=== PATIENT | female | born 1980 | race Caucasian/White ===

== ENCOUNTER 2021-12-17 21:10 | Inpatient (IN) | payer SELFPAY ==
[2021-12-17 22:09] LABS: #Basophils 0.1 thou/uL (0.0-0.2); #Eosinphils 0.4 thou/uL (0.0-0.7); #Lymphocytes 2.9 thou/uL (1.20-3.40); #Monocytes 0.6 thou/uL (0.11-0.59); #Neutrophils 3.4 thou/uL (1.40-6.50); %Basophils 1.6 % (0.0-1.0); %Eosinophils 5.4 % (0.0-10.0); %Lymphocytes 38.9 % (21.0-51.0); %Monocytes 7.4 % (0.0-10.0); %Neutrophils 46.7 % (42.0-75.0); Hemoglobin 14.2 g/dL (12.0-16.0); Mean Corpuscular HGB CONC 32.5 g/dL (32.0-36.0); Mean Corpuscular Hemoglobin 31.8 pg (27.0-31.0); Mean Corpuscular Volume 97.7 fL (78.0-98.0); Mean Platelet Volume 9.2 fL (7.4-10.4); Platelet Count 188 thou/uL (130-400); RBC Distribution Width 12.1 % (11.5-14.5); Red Blood Cell (RBC) Count 4.48 mill/uL (4.20-5.40); White Blood Cell (WBC) Count 7.3 thou/uL (4.8-10.8)
[2021-12-17 22:30] LABS: Phosphorus 3.3 mg/dL (2.3-4.7)
[2021-12-17 22:32] LABS: ALT (SGPT) 90 U/L (8-55); AST (SGOT) 109 U/L (5-34); Albumin 3.1 g/dL (3.5-5.0); Alkaline Phosphatase 193 U/L (40-110); Anion Gap 16 mmol/L (10-20); BUN (Urea Nitrogen) 9 mg/dL (7.0-18.7); Bilirubin, Total 0.7 mg/dL (0.2-1.2); Calc. Creatinine Clearance 0 mL/min (70-130); Calcium 9.2 mg/dL (7.8-10.44); Carbon Dioxide 28 mmol/L (22-29); Chloride 92 mmol/L (98-107); Estimated GFR 25; Globulin 3.5 g/dL (2.4-3.5); Magnesium 1.8 mg/dL (1.6-2.6); Protein, Total 6.6 g/dL (6.0-8.3); Sodium 133 mmol/L (136-145)
[2021-12-17 22:35] LABS: Glucose 590 mg/dL (70-105); Potassium 2.9 mmol/L (3.5-5.1)
[2021-12-17] MEDS ORDERED: Aspirin Chewable 81 MG TAB ONE (22:42)
[2021-12-17] MEDS ORDERED: Potassium Chloride 20 MEQ/100 ML PREMIX BAG ONE (22:42)
[2021-12-17] MEDS ORDERED: Potassium Chloride 20 MEQ TAB ONE (22:42)
[2021-12-17 23:00] LABS: Actual Bicarbonate (HCO3v) 30 mEq/L (22-28); Analyzer IN Cardio ER; Base Excess 5.2 mEq/L (-2.0 to +3.0); Calcium, Ionized (venous) 1.03 mmol/L (1.16-1.32); Chloride (VBG) 95 mmol/L (98-106); Hemoglobin (Hb) 15.2 g/dL (11.7-15.5); Potassium (VBG) 2.81 mmol/L (3.70-5.30); Sodium 130.1 mmol/L (133-146); pH (venous) 7.45 (7.32-7.43)
[2021-12-17 23:34] LABS: SARS-CoV-2 NAA Rapid Test Not Detected (NotDetected)
[2021-12-17 23:36] LABS: CKMB 12.3 ng/mL (0-6.6)
[2021-12-18] MEDS ORDERED: Electrolyte Replacement Protocol 1 EACH FS SCH (00:15)
[2021-12-18] MEDS ORDERED: Zolpidem Tartrate 5 MG TAB PO PRN (00:16)
[2021-12-18] MEDS ORDERED: Acetaminophen 325 MG TAB PO PRN (00:16)
[2021-12-18] MEDS ORDERED: Ondansetron PF 4 MG/2 ML Vial IVP PRN (00:16)
[2021-12-18] MEDS ORDERED: HYDROcodone/Acetaminophen 5/325 mg Tablet PO PRN (00:16)
[2021-12-18] MEDS ORDERED: Nitroglycerin 0.4 MG TAB (25 Tab Bottle) SL PRN (00:16)
[2021-12-18] MEDS ORDERED: Dextrose 50% Abboject 50 ML SYRINGE SLOW IVP PRN (00:16)
[2021-12-18] MEDS ORDERED: Dextrose 5% in Water 1,000 ML IV PRN (00:16)
[2021-12-18] MEDS ORDERED: Guaifenesin DM 100-10/5 ML UDCUP PO PRN (00:16)
[2021-12-18] MEDS ORDERED: Bisacodyl 5 MG TAB PO PRN (00:16)
[2021-12-18] MEDS ORDERED: HumaLOG 300 UNITS/3 ML VIAL SC PRN (00:16)
[2021-12-18] MEDS ORDERED: NS 0.9% w/ 20 MEQ KCL 1,000 ML/1,000 ML BAG IV SCH (00:30)
[2021-12-18] MEDS ORDERED: Aspirin 325 MG TAB PO SCH (00:30)
[2021-12-18] MEDS ORDERED: Labetalol HCl 100 MG/20 ML VIAL SLOW IVP PRN (00:31)
[2021-12-18 00:33] LABS: Bacteria/HPF 4+ HPF (None Seen); Bilirubin Negative (Negative); Blood, Urine 1+ (Negative); Clarity Turbid (Clear); Glucose, Urine (Dipstick) Greater than 1000 mg/dL (Negative); Ketone, Urine Negative (Negative); Leukocyte 500 Leu/uL (Negative); Nitrite Negative (Negative); Protein, Urine (Dipstick) 70 mg/dL (Neg-Trace); Specific Gravity, Urine 1.023 (1.002-1.036); Urobilinogen Normal mg/dL (Less than 2); WBC/HPF Greater than 50 HPF (0-3)
[2021-12-18 00:34] LABS: Pregnancy Test - Urine (BHCG) Negative (Negative); Pregu Control Background? CLEAR/WHITE (CLR/WHITE); Pregu Control Bar Appear? YES (CONTROL BAR); Specific Gravity 1.023 (1.002-1.036)
[2021-12-18] MEDS ORDERED: Insulin Regular 300 UNITS/3 ML VIAL ONE (00:58)
[2021-12-18] MEDS ORDERED: cefTRIAXone\\ROCEPHIN 1 GM VIAL ONE (01:11)
[2021-12-18 01:36] LABS: Magnesium 1.7 mg/dL (1.6-2.6)
[2021-12-18 01:42] LABS: Troponin I 0.049 ng/mL (< 0.028)
[2021-12-18] MEDS ORDERED: Potassium Chloride 20 MEQ TAB PO SCH (02:00)
[2021-12-18 02:37] VITALS: BMI 26.0
[2021-12-18] MEDS: Nicotine 21 MG PATCH TD SCH ×2 (02:37→23:57)
[2021-12-18] MEDS: 1/2 NS w/KCL 20 mEq 1,000 ML IV SCH ×2 (02:45→14:57)
[2021-12-18 02:58] LABS: Creatinine, Urine Less than 20.00 mg/dL (47-110); Sodium, Urine 96 mmol/L (Not Available)
[2021-12-18] MEDS ORDERED: Enoxaparin Sodium 80 MG/0.8 ML SYRINGE SC SCH (03:00)
[2021-12-18] MEDS ORDERED: HumaLOG 300 UNITS/3 ML VIAL SC SCH (03:00)
[2021-12-18 04:33] LABS: ALT (SGPT) 77 U/L (8-55); AST (SGOT) 98 U/L (5-34); Albumin 2.6 g/dL (3.5-5.0); Alkaline Phosphatase 167 U/L (40-110); Anion Gap 15 mmol/L (10-20); BUN (Urea Nitrogen) 8 mg/dL (7.0-18.7); Bilirubin, Total 0.5 mg/dL (0.2-1.2); Calc. Creatinine Clearance 47 mL/min (70-130); Calcium 8.5 mg/dL (7.8-10.44); Carbon Dioxide 22 mmol/L (22-29); Cardiac Risk 5.1 (Less than 4.5); Chloride 101 mmol/L (98-107); Cholesterol 108 mg/dl (< 200 Desired); Estimated GFR 35; Glucose 349 mg/dL (70-105); HDL Cholesterol 21 mg/dL (>60 Neg Risk); LDL Cholesterol, Calculated 71 mg/dL; Potassium 2.6 mmol/L (3.5-5.1); Protein, Total 5.6 g/dL (6.0-8.3); Sodium 135 mmol/L (136-145); Triglycerides 78 mg/dL (Less than 150)
[2021-12-18 04:34] LABS: Troponin I 0.042 ng/mL (< 0.028)
[2021-12-18 04:35] LABS: Hemoglobin A1c Greater than 14.0 % (4.0-6.0)
[2021-12-18] MEDS ORDERED: Potassium Chloride 20 MEQ in Premix Bag 1 BAG IVPB SCH ×2 (06:00→10:30)
[2021-12-18] MEDS ORDERED: Magnesium 2 GM/50 ML(in water) 2 GM in Premix Bag 1 BAG IVPB SCH (06:00)
[2021-12-18] MEDS: Potassium Phosphate 22 MMOL in Sodium Chloride 0.9% 250 ML 250 ML IVPB SCH ×2 (06:41→13:52)
[2021-12-18] MEDS ORDERED: Sodium Chloride 0.9% 500 ML IV SCH (07:00)
[2021-12-18] MEDS ORDERED: Carvedilol 6.25 MG TAB PO SCH (08:00)
[2021-12-18] MEDS ORDERED: PHOS-NAK 1 PKT PACK PO SCH (09:00)
[2021-12-18] MEDS: Carvedilol 6.25 MG TAB PO SCH ×2 (09:59→17:27)
[2021-12-18] MEDS: Aspirin Chewable 81 MG TAB PO SCH (10:00)
[2021-12-18] MEDS: Clopidogrel Bisulfate 75 MG TAB PO SCH (10:00)
[2021-12-18] MEDS: Famotidine 20 MG TAB PO SCH (10:00)
[2021-12-18] MEDS: HumaLOG 300 UNITS/3 ML VIAL SC PRN ×2 (11:15→17:27)
[2021-12-18] MEDS ORDERED: Amlodipine 10 MG TAB PO SCH (12:15)
[2021-12-18] MEDS: Sodium Chloride 0.45% 1,000 ML IV SCH (13:52)
[2021-12-18 15:20] LABS: Anion Gap 20 mmol/L (10-20); BUN (Urea Nitrogen) 8 mg/dL (7.0-18.7); Calc. Creatinine Clearance 48 mL/min (70-130); Calcium 8.7 mg/dL (7.8-10.44); Carbon Dioxide 14 mmol/L (22-29); Chloride 102 mmol/L (98-107); Estimated GFR 36; Glucose 396 mg/dL (70-105); Potassium 4.7 mmol/L (3.5-5.1); Sodium 131 mmol/L (136-145)
[2021-12-18] MEDS ORDERED: Insulin Glargine 30 UNITS/0.3 ML VIAL SC SCH (21:00)
[2021-12-19 04:54] LABS: Anion Gap 14 mmol/L (10-20); BUN (Urea Nitrogen) 8 mg/dL (7.0-18.7); Calc. Creatinine Clearance 58 mL/min (70-130); Carbon Dioxide 24 mmol/L (22-29); Chloride 103 mmol/L (98-107); Estimated GFR 45; Glucose 154 mg/dL (70-105); Potassium 3.9 mmol/L (3.5-5.1); Sodium 137 mmol/L (136-145)
[2021-12-19] MEDS: Sodium Chloride 0.45% 1,000 ML IV SCH ×2 (07:05→15:28)
[2021-12-19 07:19] LABS: #Basophils 0.1 thou/uL (0.0-0.2); #Eosinphils 0.5 thou/uL (0.0-0.7); #Monocytes 0.7 thou/uL (0.11-0.59); #Neutrophils 6.5 thou/uL (1.40-6.50); %Eosinophils 4.4 % (0.0-10.0); %Lymphocytes 28.2 % (21.0-51.0); %Monocytes 6.2 % (0.0-10.0); %Neutrophils 60.3 % (42.0-75.0); Hemoglobin 15.9 g/dL (12.0-16.0); Mean Corpuscular HGB CONC 31.7 g/dL (32.0-36.0); Mean Corpuscular Hemoglobin 31.5 pg (27.0-31.0); Mean Corpuscular Volume 99.5 fL (78.0-98.0); Mean Platelet Volume 9.4 fL (7.4-10.4); Platelet Count 166 thou/uL (130-400); RBC Distribution Width 12.2 % (11.5-14.5); Red Blood Cell (RBC) Count 5.05 mill/uL (4.20-5.40); White Blood Cell (WBC) Count 10.8 thou/uL (4.8-10.8)
[2021-12-19] MEDS ORDERED: Enoxaparin Sodium 80 MG/0.8 ML SYRINGE SC SCH ×2 (09:00)
[2021-12-19] MEDS ORDERED: Amlodipine 10 MG TAB PO SCH (09:00)
[2021-12-19] MEDS: Aspirin Chewable 81 MG TAB PO SCH (09:44)
[2021-12-19] MEDS: Clopidogrel Bisulfate 75 MG TAB PO SCH (09:44)
[2021-12-19] MEDS: Carvedilol 6.25 MG TAB PO SCH (09:44)
[2021-12-19] MEDS: Famotidine 20 MG TAB PO SCH (09:45)
[2021-12-19] MEDS: HumaLOG 300 UNITS/3 ML VIAL SC PRN (15:25)
[2021-12-19 16:12] VITALS: BP 147/96; TEMP 98.2
== END 2021-12-19 17:35 | disposition home or self-care (01) | DRG 638 ==
LOC: ERS 21:10 → 2NO 12-18 00:16
PROVIDERS: ADMIT Internal Medicine; ATTEND Internal Medicine
DX: E11.65 Type 2 diabetes mellitus with hyperglycemia (principal); N17.9 Acute kidney failure, unspecified; Z20.822 Contact with and (suspected) exposure to COVID-19; E87.6 Hypokalemia; T50.1X5A Adverse effect of loop [high-ceiling] diuretics, initial encounter; E86.0 Dehydration; N18.9 Chronic kidney disease, unspecified; I12.9 Hypertensive chronic kidney disease with stage 1 through stage 4 chronic kidney disease, or unspecified chronic kidney disease; E11.22 Type 2 diabetes mellitus with diabetic chronic kidney disease; R77.8 Other specified abnormalities of plasma proteins; E83.39 Other disorders of phosphorus metabolism; I95.1 Orthostatic hypotension; Z88.1 Allergy status to other antibiotic agents; Z88.8 Allergy status to other drugs, medicaments and biological substances; Z90.49 Acquired absence of other specified parts of digestive tract; Z79.899 Other long term (current) drug therapy; Z79.84 Long term (current) use of oral hypoglycemic drugs
CPT/HCPCS: 36415; 36416; 71045; 76770; 80048; 80053; 80061; 81003; 81015; 81025; 82010; 82553; 82570; 82805; 83036; 83690; 83735; 83930; 84100; 84300; 84443; 84484; 84550; 85025; 85379; 93005; 93306; 94760; 96374; J0696; J1650; J1815; J3475; J3480; J7050; U0002

== ENCOUNTER 2022-12-14 16:47 | Emergency (ER) | payer BC | END 2022-12-14 18:07 | disposition home or self-care (01) | LOC: ERS 16:47 | DX: H65.91 Unspecified nonsuppurative otitis media, right ear (principal); H73.91 Unspecified disorder of tympanic membrane, right ear; E11.9 Type 2 diabetes mellitus without complications; I10 Essential (primary) hypertension; F17.210 Nicotine dependence, cigarettes, uncomplicated; Z79.899 Other long term (current) drug therapy | CPT/HCPCS: 99283 ==

== ENCOUNTER 2022-12-17 20:35 | Emergency (ER) | payer BC ==
[2022-12-17] MEDS ORDERED: predniSONE 20 MG TAB ONE (21:50)
[2022-12-17] MEDS ORDERED: Ciprofloxacin 0.2% Otic (0.25ML CONTAINER) R EAR SCH (22:00)
== END 2022-12-17 23:10 | disposition home or self-care (01) ==
LOC: ERS 20:35
DX: H60.91 Unspecified otitis externa, right ear (principal); H73.91 Unspecified disorder of tympanic membrane, right ear; F17.210 Nicotine dependence, cigarettes, uncomplicated
CPT/HCPCS: 99282; J7512

== ENCOUNTER 2023-06-20 11:49 | Emergency (ER) | payer BC, SELFPAY ==
[2023-06-20 12:52] LABS: #Basophils 0.1 thou/uL (0.0-0.2); #Eosinphils 0.5 thou/uL (0.0-0.7); #Monocytes 0.8 thou/uL (0.11-0.59); #Neutrophils 4.7 thou/uL (1.40-6.50); %Basophils 0.8 % (0.0-1.0); %Lymphocytes 32.4 % (21.0-51.0); %Monocytes 9.2 % (0.0-10.0); %Neutrophils 52.5 % (42.0-75.0); Hematocrit 39.9 % (36.0-47.0); Hemoglobin 12.8 g/dL (12.0-16.0); Mean Corpuscular HGB CONC 32.1 g/dL (32.0-36.0); Mean Corpuscular Hemoglobin 29.8 pg (27.0-31.0); Mean Corpuscular Volume 92.8 fl (78.0-98.0); Mean Platelet Volume 10.8 fL (7.4-10.4); Platelet Count 195 10x3/uL (130-400); RBC Distribution Width 14.5 % (11.5-14.5)
[2023-06-20 13:02] LABS: BHCG - Serum Negative (NEGATIVE); Pregs Control Background? CLEAR/WHITE (CLR/WHITE); Pregs Control Bar Appear? YES (CONTROL BAR)
[2023-06-20 13:14] LABS: ALT (SGPT) 217 U/L (8-55); AST (SGOT) 185 U/L (5-34); Albumin 3.1 g/dL (3.5-5.0); Alkaline Phosphatase 388 U/L (40-110); Anion Gap 13 mmol/L (10-20); BUN (Urea Nitrogen) 38 mg/dL (7.0-18.7); Bilirubin, Total 0.3 mg/dL (0.2-1.2); Calc. Creatinine Clearance 0 mL/min (70-130); Calcium 8.7 mg/dL (7.8-10.44); Carbon Dioxide 18 mmol/L (22-29); Chloride 112 mmol/L (98-107); Estimated GFR 27; Globulin 3.6 g/dL (2.4-3.5); Glucose 85 mg/dL (70-105); Lipase 50 U/L (8-78); Potassium 4.1 mmol/L (3.5-5.1); Protein, Total 6.7 g/dL (6.0-8.3); Sodium 139 mmol/L (136-145)
[2023-06-20 13:41] LABS: Bacteria/HPF 2+ HPF (None Seen); Bilirubin Negative (Negative); Blood, Urine Trace (Negative); CAUTI Indications for Culture Pelvic or flank pain; Clarity Turbid (Clear); Glucose, Urine (Dipstick) 100 mg/dL (Negative); Ketone, Urine Negative (Negative); Leukocyte 75 Leu/uL (Negative); Nitrite Negative (Negative); Protein, Urine (Dipstick) 50 mg/dL (Neg-Trace); Specific Gravity, Urine 1.012 (1.002-1.036); Squamous Epithelial 21-50 HPF (0-3); Urobilinogen Normal mg/dL (Less than 2); pH, Urine 5.5 (5.0-9.0)
[2023-06-20 13:42] LABS: Urine Culture Reflex No No
[2023-06-20] MEDS ORDERED: Famotidine/PF 20 mg/2ml Vial ONE (14:00)
[2023-06-20] MEDS ORDERED: Famotidine 20 MG TAB ONE (14:52)
[2023-06-20] MEDS ORDERED: Dicyclomine 20 MG TAB ONE (14:52)
[2023-06-20] MEDS ORDERED: Lisinopril 20 MG TAB ONE (14:52)
== END 2023-06-20 15:55 | disposition home or self-care (01) ==
LOC: ERS 11:49
DX: K58.9 Irritable bowel syndrome, unspecified (principal); R22.2 Localized swelling, mass and lump, trunk; F17.210 Nicotine dependence, cigarettes, uncomplicated; F12.10 Cannabis abuse, uncomplicated; E11.9 Type 2 diabetes mellitus without complications; I10 Essential (primary) hypertension; Z55.6 Problems related to health literacy; Z79.4 Long term (current) use of insulin; Z79.899 Other long term (current) drug therapy; Z79.84 Long term (current) use of oral hypoglycemic drugs
CPT/HCPCS: 36415; 74176; 80053; 81001; 83690; 84703; 85025; 93005; S0028

== ENCOUNTER 2023-10-25 11:30 | Inpatient (IN) | payer OTHER ==
[2023-10-25 13:01] LABS: #Basophils 0.06 10x3/uL (0.0-0.2); %Basophils 0.6 % (0.0-1.0); %Eosinophils 3.9 % (0.0-10.0); %Lymphocytes 28.4 % (21.0-51.0); %Monocytes 4.5 % (0.0-10.0); %Neutrophils 62.3 % (42.0-75.0); Hematocrit 40.3 % (36.0-47.0); Hemoglobin 13.5 g/dL (12.0-16.0); Mean Corpuscular HGB CONC 33.5 g/dL (32.0-36.0); Mean Corpuscular Hemoglobin 29.3 pg (27.0-31.0); Mean Corpuscular Volume 87.4 fL (78.0-98.0); Mean Platelet Volume 12.3 fL (7.4-10.4); Platelet Count 224 10x3/uL (130-400); RBC Distribution Width 12.8 % (11.5-14.5); Red Blood Cell (RBC) Count 4.61 mill/uL (4.20-5.40)
[2023-10-25 13:38] LABS: ALT (SGPT) 31 U/L (8-55); AST (SGOT) 30 U/L (5-34); Albumin 2.9 g/dL (3.5-5.0); Alkaline Phosphatase 239 U/L (40-110); Anion Gap 12 mmol/L (10-20); BUN (Urea Nitrogen) 19 mg/dL (7.0-18.7); Bilirubin, Total 0.5 mg/dL (0.2-1.2); Calc. Creatinine Clearance 0 mL/min (70-130); Calcium 9.3 mg/dL (7.8-10.44); Carbon Dioxide 22 mmol/L (22-29); Chloride 98 mmol/L (98-107); Estimated GFR 21; Globulin 4.1 g/dL (2.4-3.5); Glucose 630 mg/dL (70-105); Lipase 20 U/L (8-78); Magnesium 1.8 mg/dL (1.6-2.6); Potassium 4.4 mmol/L (3.5-5.1); Sodium 128 mmol/L (136-145)
[2023-10-25 13:47] LABS: Phosphorus 3.1 mg/dL (2.3-4.7)
[2023-10-25 13:49] LABS: Troponin I Less than 0.010 ng/mL (< 0.028)
[2023-10-25] MEDS ORDERED: Insulin Regular, Human 100 UNIT/ML 10 ML VIAL ONE (14:13)
[2023-10-25] MEDS ORDERED: Ketorolac Tromethamine 30 MG (1 mL) VIAL ONE (15:04)
[2023-10-25] MEDS ORDERED: Ondansetron PF 4 MG/2 ML Vial ONE (15:04)
[2023-10-25] MEDS ORDERED: Nicotine 14 MG PATCH ONE (15:04)
[2023-10-25] MEDS ORDERED: Dextrose 50% Abboject 50 ML SYRINGE SLOW IVP PRN ×2 (15:17→16:42)
[2023-10-25] MEDS ORDERED: D5 1/2 NS w/20 mEq KCL 1,000 ML IV PRN (15:17)
[2023-10-25] MEDS ORDERED: Dextrose 5 %-0.45 % NaCl 1,000 ML IV PRN (15:17)
[2023-10-25] MEDS ORDERED: Sodium Chloride 0.9% 1,000 ML IV PRN ×4 (15:17)
[2023-10-25] MEDS ORDERED: Electrolyte Replacement Protocol 1 EACH IVPB PRN (15:17)
[2023-10-25] MEDS ORDERED: NS 0.9% w/ 20 MEQ KCL 1,000 ML IV PRN ×2 (15:17)
[2023-10-25] MEDS ORDERED: INSULIN REGULAR IN 0.9 % NACL 100 UNITS/100 ML BAG ONE (15:29)
[2023-10-25] MEDS ORDERED: INSULIN REGULAR IN 0.9 % NACL 100 UNITS in Premix 1 BAG IVPB SCH (16:00)
[2023-10-25 16:26] LABS: Actual Bicarbonate (HCO3v) 24.3 mEq/L (22-28); Base Excess -1.7 mEq/L (-2.0 to +3.0); Calcium, Ionized (venous) 1.13 mmol/L (1.16-1.32); Chloride (VBG) 100 mmol/L (98-106); Hematocrit-VBG 42 % (36.0-47.0); Hemoglobin (Hb) 14.3 g/dL (11.7-15.5); Potassium (VBG) 3.48 mmol/L (3.70-5.30); Sodium 137 mmol/L (133-146); pH (venous) 7.341 (7.32-7.43)
[2023-10-25] MEDS ORDERED: Potassium Chloride 20 MEQ (100 mL) BAG ONE (16:29)
[2023-10-25 16:34] LABS: Glucose 183 mg/dL (70-105)
[2023-10-25 16:40] LABS: Anion Gap 12 mmol/L (10-20); BUN (Urea Nitrogen) 18 mg/dL (7.0-18.7); Calc. Creatinine Clearance 0 mL/min (70-130); Calcium 9.1 mg/dL (7.8-10.44); Carbon Dioxide 23 mmol/L (22-29); Chloride 105 mmol/L (98-107); Estimated GFR 26; Glucose 182 mg/dL (70-105); Potassium 3.3 mmol/L (3.5-5.1); Sodium 137 mmol/L (136-145)
[2023-10-25] MEDS ORDERED: Glucagon 1 MG/ML KIT IM PRN (16:42)
[2023-10-25] MEDS ORDERED: HumaLOG 300 UNITS/3 ML VIAL SC PRN (16:42)
[2023-10-25] MEDS ORDERED: Dextrose 5% in Water 1,000 ML IV PRN (16:42)
[2023-10-25 18:00] VITALS: BMI 23.1
[2023-10-25] MEDS: Nicotine 14 MG PATCH TD SCH (18:08)
[2023-10-25] MEDS: Insulin Glargine 30 UNITS/0.3 ML VIAL SC SCH (18:11)
[2023-10-25] MEDS: NS 0.9% w/ 40 MEQ KCL 1,000 ML IV SCH (18:12)
[2023-10-25] MEDS: Acetaminophen 325 MG TAB PO SCH (18:12)
[2023-10-25] MEDS: hydrALAZINE 20 MG/ML VIAL SLOW IVP PRN (18:45)
[2023-10-25] MEDS: Heparin 5,000 UNITS/ML VIAL SC SCH (20:25)
[2023-10-25] MEDS: Insulin Lispro 100 UNIT/ML 10 ML VIAL SC PRN (20:26)
[2023-10-25] MEDS: Ondansetron PF 4 MG/2 ML Vial IVP PRN (20:31)
[2023-10-25 20:50] LABS: Anion Gap 12 mmol/L (10-20); BUN (Urea Nitrogen) 17 mg/dL (7.0-18.7); Calc. Creatinine Clearance 35 mL/min (70-130); Calcium 8.5 mg/dL (7.8-10.44); Carbon Dioxide 23 mmol/L (22-29); Chloride 103 mmol/L (98-107); Estimated GFR 28; Glucose 300 mg/dL (70-105); Potassium 3.6 mmol/L (3.5-5.1); Sodium 134 mmol/L (136-145)
[2023-10-26 01:23] LABS: Anion Gap 12 mmol/L (10-20); BUN (Urea Nitrogen) 18 mg/dL (7.0-18.7); Calc. Creatinine Clearance 34 mL/min (70-130); Calcium 8.4 mg/dL (7.8-10.44); Carbon Dioxide 18 mmol/L (22-29); Chloride 107 mmol/L (98-107); Estimated GFR 27; Glucose 217 mg/dL (70-105); Sodium 133 mmol/L (136-145)
[2023-10-26 01:31] LABS: Bacteria/HPF None Seen HPF (None Seen); Bilirubin Negative (Negative); Blood, Urine 3+ (Negative); Clarity Clear (Clear); Glucose, Urine (Dipstick) Greater than 1000 mg/dL (Negative); Ketone, Urine Negative (Negative); Leukocyte 25 Leu/uL (Negative); Nitrite Negative (Negative); Protein, Urine (Dipstick) 100 mg/dL (Neg-Trace); RBC/HPF 0-3 HPF (0-3); Specific Gravity, Urine 1.016 (1.002-1.036); Squamous Epithelial 0-3 HPF (0-3); Urobilinogen Normal mg/dL (Less than 2); pH, Urine 6.5 (5.0-9.0)
[2023-10-26 07:07] LABS: #Basophils 0.07 10x3/uL (0.0-0.2); %Basophils 0.7 % (0.0-1.0); %Eosinophils 6.9 % (0.0-10.0); %Lymphocytes 38.9 % (21.0-51.0); %Monocytes 4.8 % (0.0-10.0); %Neutrophils 48.4 % (42.0-75.0); Hematocrit 38.9 % (36.0-47.0); Hemoglobin 12.7 g/dL (12.0-16.0); Mean Corpuscular HGB CONC 32.6 g/dL (32.0-36.0); Mean Corpuscular Hemoglobin 28.7 pg (27.0-31.0); Mean Platelet Volume 11.8 fL (7.4-10.4); Platelet Count 198 10x3/uL (130-400); RBC Distribution Width 12.9 % (11.5-14.5); Red Blood Cell (RBC) Count 4.42 mill/uL (4.20-5.40)
[2023-10-26 07:52] LABS: Anion Gap 10 mmol/L (10-20); BUN (Urea Nitrogen) 17 mg/dL (7.0-18.7); Calc. Creatinine Clearance 36 mL/min (70-130); Calcium 8.5 mg/dL (7.8-10.44); Carbon Dioxide 23 mmol/L (22-29); Chloride 108 mmol/L (98-107); Estimated GFR 29; Glucose 140 mg/dL (70-105); Potassium 3.8 mmol/L (3.5-5.1); Sodium 137 mmol/L (136-145)
[2023-10-26 08:04] LABS: Hemoglobin A1c Greater than 14.0 % (4.0-6.0)
[2023-10-26] MEDS: Acetaminophen/Codeine 30-300mg Tablet PO PRN (09:10)
[2023-10-26] MEDS: Amlodipine 10 MG TAB PO SCH (09:11)
[2023-10-26] MEDS: Famotidine 20 MG TAB PO SCH (09:11)
[2023-10-26] MEDS: Insulin Glargine 30 UNITS/0.3 ML VIAL SC SCH (09:12)
[2023-10-26 11:58] VITALS: BP 145/97; TEMP 98.2
== END 2023-10-26 15:18 | disposition home or self-care (01) | DRG 638 ==
LOC: ERS 11:30 → IMCU/EMU 15:17 → T4-B 18:27
PROVIDERS: ADMIT Internal Medicine; ATTEND Internal Medicine
DX: E11.10 Type 2 diabetes mellitus with ketoacidosis without coma (principal); N17.9 Acute kidney failure, unspecified; E11.22 Type 2 diabetes mellitus with diabetic chronic kidney disease; I12.9 Hypertensive chronic kidney disease with stage 1 through stage 4 chronic kidney disease, or unspecified chronic kidney disease; K21.9 Gastro-esophageal reflux disease without esophagitis; E87.6 Hypokalemia; N18.9 Chronic kidney disease, unspecified; F17.210 Nicotine dependence, cigarettes, uncomplicated; Z79.4 Long term (current) use of insulin; Z79.899 Other long term (current) drug therapy; Z88.8 Allergy status to other drugs, medicaments and biological substances; Z88.1 Allergy status to other antibiotic agents; Z90.49 Acquired absence of other specified parts of digestive tract; Z91.148 Patient's other noncompliance with medication regimen for other reason
CPT/HCPCS: 36415; 36416; 71045; 80048; 80053; 81001; 82010; 82805; 83036; 83690; 83735; 83880; 84100; 84484; 85025; 93005; 96374; 96375; J0360; J1644; J1815; J1885; J2405; J3480

== ENCOUNTER 2024-03-06 15:28 | Inpatient (IN) | payer OTHER ==
[2024-03-06 16:21] LABS: #Basophils 0.05 10x3/uL (0.0-0.2); %Basophils 0.5 % (0.0-1.0); %Eosinophils 1.7 % (0.0-10.0); %Lymphocytes 18.8 % (21.0-51.0); %Neutrophils 74.7 % (42.0-75.0); Hematocrit 44.5 % (36.0-47.0); Hemoglobin 14.8 g/dL (12.0-16.0); Mean Corpuscular HGB CONC 33.3 g/dL (32.0-36.0); Mean Corpuscular Hemoglobin 29.4 pg (27.0-31.0); Mean Corpuscular Volume 88.3 fL (78.0-98.0); Mean Platelet Volume 11.9 fL (7.4-10.4); Platelet Count 194 10x3/uL (130-400); RBC Distribution Width 12.3 % (11.5-14.5); Red Blood Cell (RBC) Count 5.04 mill/uL (4.20-5.40)
[2024-03-06 16:29] LABS: Actual Bicarbonate (HCO3v) 25.6 mEq/L (22-28); Analyzer IN Cardio ER; Base Excess -1.9 mEq/L (-2.0 to +3.0); Calcium, Ionized (venous) 1.19 mmol/L (1.16-1.32); Chloride (VBG) 92 mmol/L (98-106); Hematocrit-VBG 45 % (36.0-47.0); Hemoglobin (Hb) 15.4 g/dL (11.7-15.5); Potassium (VBG) 4.18 mmol/L (3.70-5.30); Sodium 132 mmol/L (133-146); pH (venous) 7.294 (7.32-7.43)
[2024-03-06 16:35] LABS: Phosphorus 3.6 mg/dL (2.3-4.7)
[2024-03-06 16:42] LABS: Troponin I Less than 0.010 ng/mL (< 0.028)
[2024-03-06 16:44] LABS: ALT (SGPT) 45 U/L (8-55); AST (SGOT) 34 U/L (5-34); Alkaline Phosphatase 232 U/L (40-110); Anion Gap 11 mmol/L (10-20); BUN (Urea Nitrogen) 31 mg/dL (7.0-18.7); Bilirubin, Total 0.4 mg/dL (0.2-1.2); Calc. Creatinine Clearance 0 mL/min (70-130); Calcium 8.9 mg/dL (7.8-10.44); Carbon Dioxide 25 mmol/L (22-29); Chloride 94 mmol/L (98-107); Estimated GFR 19; Glucose 764 mg/dL (70-105); Lipase 14 U/L (8-78); Magnesium 1.7 mg/dL (1.6-2.6); Potassium 4.1 mmol/L (3.5-5.1); Sodium 126 mmol/L (136-145)
[2024-03-06] MEDS ORDERED: Ondansetron PF 4 MG/2 ML Vial ONE ×2 (17:08→21:10)
[2024-03-06] MEDS ORDERED: Morphine 4 MG/ML VIAL ONE (17:08)
[2024-03-06] MEDS ORDERED: Lisinopril 10 MG TAB ONE (17:40)
[2024-03-06 17:43] LABS: Bilirubin Negative (Negative); Blood, Urine 1+ (Negative); CAUTI Indications for Culture Pelvic or flank pain; Clarity Turbid (Clear); Glucose, Urine (Dipstick) Greater than 1000 mg/dL (Negative); Ketone, Urine Negative (Negative); Leukocyte 500 Leu/uL (Negative); Nitrite Negative (Negative); Protein, Urine (Dipstick) 100 mg/dL (Neg-Trace); Specific Gravity, Urine 1.017 (1.002-1.036); Urobilinogen Normal mg/dL (Less than 2); WBC/HPF Greater than 50 HPF (0-3); Yeast-Budding 2+ HPF (None Seen); Yeast-Hyphae Rare HPF (None Seen); pH, Urine 5.5 (5.0-9.0)
[2024-03-06 17:45] LABS: Bacteria/HPF 1+ HPF (None Seen)
[2024-03-06 17:46] LABS: Urine Culture Reflex Yes Yes
[2024-03-06] MEDS ORDERED: hydrALAZINE 20 MG/ML VIAL ONE (19:28)
[2024-03-06 19:34] LABS: Troponin I Less than 0.010 ng/mL (< 0.028)
[2024-03-06 20:14] LABS: Glucose 600 mg/dL (70-105)
[2024-03-06] MEDS ORDERED: Insulin Regular, Human 100 UNIT/ML 10 ML VIAL IVP SCH (20:30)
[2024-03-06] MEDS ORDERED: Insulin Regular, Human 100 UNIT/ML 10 ML VIAL ONE (20:43)
[2024-03-06] MEDS ORDERED: Insulin Lispro 100 UNIT/ML 10 ML VIAL SC PRN (21:11)
[2024-03-06] MEDS ORDERED: Glucagon 1 MG/ML KIT IM PRN (21:11)
[2024-03-06] MEDS ORDERED: Dextrose 50% Abboject 50 ML SYRINGE SLOW IVP PRN (21:11)
[2024-03-06] MEDS ORDERED: Dextrose 5% in Water 1,000 ML IV PRN (21:11)
[2024-03-06] MEDS ORDERED: hydrALAZINE 20 MG/ML VIAL SLOW IVP PRN (21:29)
[2024-03-06] MEDS ORDERED: Lactated Ringer's 1,000 ML IV SCH (21:30)
[2024-03-06 22:43] LABS: Troponin I Less than 0.010 ng/mL (< 0.028)
[2024-03-06] MEDS: Insulin Glargine 30 UNITS/0.3 ML VIAL SC SCH (22:57)
[2024-03-06 23:08] LABS: Amphetamine Detected (NotDetected); Barbiturates Screen Not Detected (NotDetected); Benzodiazepine Screen Not Detected (NotDetected); Cocaine Metabolite Screen Not Detected (NotDetected); Methadone Not Detected (NotDetected); Methamphetamine Detected (NotDetected); Opiate Screen Detected (NotDetected); Oxycodone Screen Not Detected (NotDetected); Phencyclidine (PCP) Not Detected (NotDetected); THC/Cannabinoid Screen Not Detected (NotDetected); Tricyclic Screen Not Detected (NotDetected)
[2024-03-06] MEDS: Insulin Lispro 100 UNIT/ML 10 ML VIAL SC PRN (23:09)
[2024-03-06] MEDS: Lactated Ringer's 1,000 ML IV SCH (23:10)
[2024-03-06 23:24] VITALS: BMI 24.5
[2024-03-06] MEDS: traMADol HCl 50 MG TAB PO PRN (23:59)
[2024-03-07] MEDS: Ondansetron PF 4 MG/2 ML Vial IVP PRN (04:02)
[2024-03-07 05:42] LABS: #Basophils 0.06 10x3/uL (0.0-0.2); %Basophils 0.4 % (0.0-1.0); %Eosinophils 0.4 % (0.0-10.0); %Lymphocytes 14.4 % (21.0-51.0); %Monocytes 6.4 % (0.0-10.0); %Neutrophils 77.9 % (42.0-75.0); Hematocrit 40.8 % (36.0-47.0); Hemoglobin 13.9 g/dL (12.0-16.0); Mean Corpuscular HGB CONC 34.1 g/dL (32.0-36.0); Mean Corpuscular Hemoglobin 29.4 pg (27.0-31.0); Mean Corpuscular Volume 86.4 fL (78.0-98.0); Mean Platelet Volume 11.5 fL (7.4-10.4); Platelet Count 164 10x3/uL (130-400); RBC Distribution Width 12.4 % (11.5-14.5); Red Blood Cell (RBC) Count 4.72 mill/uL (4.20-5.40)
[2024-03-07] MEDS ORDERED: Glucagon 1 MG/ML KIT IM PRN (05:51)
[2024-03-07] MEDS ORDERED: Dextrose 50% Abboject 50 ML SYRINGE SLOW IVP PRN (05:51)
[2024-03-07] MEDS ORDERED: Dextrose 5% in Water 1,000 ML IV PRN (05:51)
[2024-03-07 06:20] LABS: Anion Gap 14 mmol/L (10-20); BUN (Urea Nitrogen) 31 mg/dL (7.0-18.7); Calc. Creatinine Clearance 29 mL/min (70-130); Calcium 9.6 mg/dL (7.8-10.44); Carbon Dioxide 18 mmol/L (22-29); Chloride 108 mmol/L (98-107); Estimated GFR 21; Glucose 117 mg/dL (70-105); Potassium 3.8 mmol/L (3.5-5.1); Sodium 136 mmol/L (136-145)
[2024-03-07] MEDS: Promethazine HCl 12.5 MG in Sodium Chloride 0.9% 100 ML IVPB SCH (06:30)
[2024-03-07] MEDS: Morphine 2 MG/ML VIAL SLOW IVP SCH (08:09)
[2024-03-07] MEDS ORDERED: Lisinopril 10 MG TAB PO SCH (09:00)
[2024-03-07] MEDS: Amlodipine 10 MG TAB PO SCH (10:09)
[2024-03-07] MEDS: Heparin 5,000 UNITS/ML VIAL SC SCH (10:09)
[2024-03-07] MEDS: Insulin Glargine 30 UNITS/0.3 ML VIAL SC SCH ×2 (10:51→21:14)
[2024-03-07] MEDS: Ciprofloxacin Lactate/D5W 200 MG in Premix 1 BAG IVPB SCH (11:28)
[2024-03-08 08:56] LABS: #Basophils 0.05 10x3/uL (0.0-0.2); %Basophils 0.7 % (0.0-1.0); %Eosinophils 3.4 % (0.0-10.0); %Lymphocytes 40.1 % (21.0-51.0); %Monocytes 6.1 % (0.0-10.0); %Neutrophils 49.6 % (42.0-75.0); Hematocrit 36.5 % (36.0-47.0); Hemoglobin 11.9 g/dL (12.0-16.0); Mean Corpuscular HGB CONC 32.6 g/dL (32.0-36.0); Mean Corpuscular Hemoglobin 29.2 pg (27.0-31.0); Mean Corpuscular Volume 89.5 fL (78.0-98.0); Mean Platelet Volume 11.6 fL (7.4-10.4); Platelet Count 159 10x3/uL (130-400); RBC Distribution Width 12.5 % (11.5-14.5); Red Blood Cell (RBC) Count 4.08 mill/uL (4.20-5.40)
[2024-03-08 09:14] LABS: Anion Gap 10 mmol/L (10-20); BUN (Urea Nitrogen) 27 mg/dL (7.0-18.7); Calc. Creatinine Clearance 30 mL/min (70-130); Calcium 8.3 mg/dL (7.8-10.44); Carbon Dioxide 23 mmol/L (22-29); Chloride 107 mmol/L (98-107); Estimated GFR 23; Glucose 164 mg/dL (70-105); Potassium 3.6 mmol/L (3.5-5.1); Sodium 136 mmol/L (136-145)
[2024-03-08] MEDS: Acetaminophen 325 MG TAB PO PRN (10:10)
[2024-03-08] MEDS: Lidocaine 4% Patch TD SCH (11:50)
[2024-03-08] MEDS: Insulin Lispro 100 UNIT/ML 10 ML VIAL SC PRN (11:50)
[2024-03-08] MEDS: Acetaminophen/Codeine 30-300mg Tablet PO PRN (17:29)
[2024-03-08] MEDS: Insulin Glargine 30 UNITS/0.3 ML VIAL SC SCH (20:51)
[2024-03-09] MEDS: Transdermal Patch Removal TOP SCH (00:05)
[2024-03-09] MEDS: Ondansetron ODT 4 MG TAB PO PRN (04:51)
[2024-03-09 06:09] LABS: #Basophils 0.04 10x3/uL (0.0-0.2); %Basophils 0.6 % (0.0-1.0); %Lymphocytes 45.6 % (21.0-51.0); %Monocytes 6.9 % (0.0-10.0); %Neutrophils 41.7 % (42.0-75.0); Hematocrit 35.6 % (36.0-47.0); Hemoglobin 11.6 g/dL (12.0-16.0); Mean Corpuscular HGB CONC 32.6 g/dL (32.0-36.0); Mean Corpuscular Hemoglobin 29.3 pg (27.0-31.0); Mean Corpuscular Volume 89.9 fL (78.0-98.0); Platelet Count 149 10x3/uL (130-400); RBC Distribution Width 12.6 % (11.5-14.5); Red Blood Cell (RBC) Count 3.96 mill/uL (4.20-5.40)
[2024-03-09 06:46] LABS: Anion Gap 11 mmol/L (10-20); BUN (Urea Nitrogen) 24 mg/dL (7.0-18.7); Calc. Creatinine Clearance 31 mL/min (70-130); Calcium 8.4 mg/dL (7.8-10.44); Carbon Dioxide 23 mmol/L (22-29); Chloride 105 mmol/L (98-107); Estimated GFR 24; Glucose 220 mg/dL (70-105); Potassium 3.8 mmol/L (3.5-5.1); Sodium 135 mmol/L (136-145)
[2024-03-09 13:17] VITALS: BP 117/82; TEMP 97.8
== END 2024-03-09 13:07 | disposition home or self-care (01) | DRG 638 ==
LOC: ERS 15:28 → MSONC 17:43
PROVIDERS: ADMIT Internal Medicine; ATTEND Internal Medicine
DX: E11.65 Type 2 diabetes mellitus with hyperglycemia (principal); N17.9 Acute kidney failure, unspecified; S22.42XA Multiple fractures of ribs, left side, initial encounter for closed fracture; N18.4 Chronic kidney disease, stage 4 (severe); E11.22 Type 2 diabetes mellitus with diabetic chronic kidney disease; F12.10 Cannabis abuse, uncomplicated; F17.210 Nicotine dependence, cigarettes, uncomplicated; I12.9 Hypertensive chronic kidney disease with stage 1 through stage 4 chronic kidney disease, or unspecified chronic kidney disease; K21.9 Gastro-esophageal reflux disease without esophagitis; W01.0XXA Fall on same level from slipping, tripping and stumbling without subsequent striking against object, initial encounter; I16.0 Hypertensive urgency; D72.829 Elevated white blood cell count, unspecified; E86.0 Dehydration; Z91.148 Patient's other noncompliance with medication regimen for other reason; Z88.8 Allergy status to other drugs, medicaments and biological substances; Z79.4 Long term (current) use of insulin; Y93.89 Activity, other specified; Y92.89 Other specified places as the place of occurrence of the external cause; Z88.1 Allergy status to other antibiotic agents; Z90.49 Acquired absence of other specified parts of digestive tract; Z71.3 Dietary counseling and surveillance
CPT/HCPCS: 36415; 36416; 80048; 80053; 80306; 81001; 82010; 82805; 83690; 83735; 84100; 84484; 85025; 87086; 93005; 96361; 96374; 96375; 96376; J0360; J0744; J1644; J1815; J2272; J2405; J2550; J7120; Q0162

== ENCOUNTER 2025-03-02 14:31 | Inpatient (IN) | payer OTHER, SELFPAY ==
[2025-03-02] MEDS ORDERED: Ondansetron PF 4 MG/2 ML Vial ONE ×2 (15:59→16:00)
[2025-03-02 16:50] LABS: #Basophils 0.06 10x3/uL (0.0-0.2); #Eosinophils 0.15 10x3/uL (0.0-0.7); #Monocytes 0.33 10x3/uL (0.11-0.59); #Neutrophils 5.78 10x3/uL (1.40-6.50); %Basophils 0.7 % (0.0-1.0); %Eosinophils 1.7 % (0.0-10.0); %Lymphocytes 29.4 % (21.0-51.0); %Monocytes 3.7 % (0.0-10.0); %Neutrophils 64.2 % (42.0-75.0); Hematocrit 39.9 % (36.0-47.0); Hemoglobin 12.7 g/dL (12.0-16.0); Mean Corpuscular Hemoglobin 26.6 pg (27.0-31.0); Mean Corpuscular Volume 83.6 fL (78.0-98.0); Platelet Count 208 10x3/uL (130-400); Red Blood Cell (RBC) Count 4.77 mill/uL (4.20-5.40); White Blood Cell (WBC) Count 9.00 10x3/uL (4.8-10.8)
[2025-03-02 16:58] LABS: BHCG - Serum Negative (NEGATIVE); Pregs Control Background? CLEAR/WHITE (CLR/WHITE); Pregs Control Bar Appear? YES (CONTROL BAR)
[2025-03-02 16:59] LABS: CAUTI Indications for Culture Pelvic or flank pain; Glucose, Urine (Dipstick) Greater than 1000 mg/dL (Negative); Leukocyte 75 Leu/uL (Negative); Protein, Urine (Dipstick) 100 mg/dL (Neg-Trace); RBC/HPF 0-3 HPF (0-3); Specific Gravity, Urine 1.016 (1.002-1.036)
[2025-03-02 17:18] LABS: ALT (SGPT) 57 U/L (Less than 34); AST (SGOT) 51 U/L (11-34); Albumin 3.2 g/dL (3.1-4.5); Alkaline Phosphatase 335 U/L (40-110); Anion Gap 15 mmol/L (10-20); BUN (Urea Nitrogen) 42 mg/dL (7.0-18.7); Bilirubin, Total 0.5 mg/dL (0.3-1.2); Calc. Creatinine Clearance 0 mL/min (70-130); Calcium 9.2 mg/dL (7.8-10.44); Carbon Dioxide 23 mmol/L (22-29); Chloride 93 mmol/L (98-107); Globulin 4.2 g/dL (2.4-3.5); Glucose 632 mg/dL (70-105); Lipase 42 U/L (8-78); Potassium 4.6 mmol/L (3.5-5.1); Sodium 126 mmol/L (136-145)
[2025-03-02 17:20] LABS: Bacteria/HPF 1+ HPF (None Seen)
[2025-03-02 17:21] LABS: Urine Culture Reflex Yes Yes
[2025-03-02 18:04] LABS: Acetaminophen Less than 10 mcg/mL (Less than 10); Salicylate Less than 8.0 mg/dL (Less than 8.0)
[2025-03-02 18:34] LABS: Actual Bicarbonate (HCO3v) 18.4 mEq/L (22-28); Analyzer IN Cardio ER; Base Excess -1.3 mEq/L (-2.0 to +3.0); Calcium, Ionized (venous) 0.88 mmol/L (1.16-1.32); Chloride (VBG) 98 mmol/L (98-106); Hematocrit-VBG 38 % (36.0-47.0); Hemoglobin (Hb) 12.8 g/dL (11.7-15.5); Potassium (VBG) 4.60 mmol/L (3.70-5.30); Sodium 125 mmol/L (133-146)
[2025-03-02 19:35] LABS: Cocaine Metabolite Screen Negative (Negative); THC/Cannabinoid Screen Negative (Negative); Tricyclic Screen Negative (Negative)
[2025-03-02] MEDS ORDERED: Acetaminophen 325 MG TAB PO PRN (21:07)
[2025-03-02] MEDS ORDERED: Dextrose 50% Abboject 50 ML SYRINGE SLOW IVP PRN (21:10)
[2025-03-02] MEDS ORDERED: Glucagon 1 MG/ML KIT IM PRN (21:10)
[2025-03-02 21:51] VITALS: BMI 23.6
[2025-03-02] MEDS: Insulin Glargine 30 UNITS/0.3 ML VIAL SC SCH (22:32)
[2025-03-02] MEDS: Ondansetron PF 4 MG/2 ML Vial IVP PRN (22:32)
[2025-03-02] MEDS: Pantoprazole 40 MG DR.TAB PO SCH (22:32)
[2025-03-03 05:38] LABS: #Basophils 0.06 10x3/uL (0.0-0.2); #Eosinophils 0.40 10x3/uL (0.0-0.7); #Monocytes 0.53 10x3/uL (0.11-0.59); #Neutrophils 3.67 10x3/uL (1.40-6.50); %Basophils 0.8 % (0.0-1.0); %Eosinophils 5.1 % (0.0-10.0); %Lymphocytes 40.4 % (21.0-51.0); %Monocytes 6.8 % (0.0-10.0); %Neutrophils 46.6 % (42.0-75.0); Hematocrit 31.8 % (36.0-47.0); Hemoglobin 10.0 g/dL (12.0-16.0); Mean Corpuscular Hemoglobin 26.8 pg (27.0-31.0); Mean Corpuscular Volume 85.3 fL (78.0-98.0); Platelet Count 179 10x3/uL (130-400); Red Blood Cell (RBC) Count 3.73 mill/uL (4.20-5.40); White Blood Cell (WBC) Count 7.85 10x3/uL (4.8-10.8)
[2025-03-03 06:01] LABS: ALT (SGPT) 46 U/L (Less than 34); AST (SGOT) 54 U/L (11-34); Albumin 2.5 g/dL (3.1-4.5); Alkaline Phosphatase 249 U/L (40-110); Anion Gap 11 mmol/L (10-20); BUN (Urea Nitrogen) 40 mg/dL (7.0-18.7); Bilirubin, Total 0.3 mg/dL (0.3-1.2); Calc. Creatinine Clearance 17 mL/min (70-130); Calcium 8.5 mg/dL (7.8-10.44); Carbon Dioxide 22 mmol/L (22-29); Chloride 105 mmol/L (98-107); Globulin 3.5 g/dL (2.4-3.5); Glucose 213 mg/dL (70-105); Potassium 4.2 mmol/L (3.5-5.1); Sodium 134 mmol/L (136-145)
[2025-03-03] MEDS: Pantoprazole 40 MG DR.TAB PO SCH (09:56)
[2025-03-03] MEDS: Heparin 5,000 UNITS/ML VIAL SC SCH (09:56)
[2025-03-03] MEDS: Insulin Glargine 30 UNITS/0.3 ML VIAL SC SCH (20:11)
[2025-03-04] MEDS: Albumin 25% 25 GM (100 mL) BOT IVPB SCH (06:16)
[2025-03-04 06:29] LABS: #Basophils 0.05 10x3/uL (0.0-0.2); #Eosinophils 0.33 10x3/uL (0.0-0.7); #Monocytes 0.45 10x3/uL (0.11-0.59); #Neutrophils 2.98 10x3/uL (1.40-6.50); %Basophils 0.8 % (0.0-1.0); %Eosinophils 5.0 % (0.0-10.0); %Lymphocytes 41.8 % (21.0-51.0); %Monocytes 6.9 % (0.0-10.0); %Neutrophils 45.3 % (42.0-75.0); Hematocrit 32.1 % (36.0-47.0); Hemoglobin 9.7 g/dL (12.0-16.0); Mean Corpuscular Hemoglobin 26.4 pg (27.0-31.0); Mean Corpuscular Volume 87.2 fL (78.0-98.0); Platelet Count 155 10x3/uL (130-400); Red Blood Cell (RBC) Count 3.68 mill/uL (4.20-5.40); White Blood Cell (WBC) Count 6.56 10x3/uL (4.8-10.8)
[2025-03-04 06:44] LABS: Anion Gap 14 mmol/L (10-20); BUN (Urea Nitrogen) 37 mg/dL (7.0-18.7); Calc. Creatinine Clearance 18 mL/min (70-130); Calcium 8.1 mg/dL (7.8-10.44); Carbon Dioxide 15 mmol/L (22-29); Chloride 110 mmol/L (98-107); Glucose 197 mg/dL (70-105); Potassium 3.8 mmol/L (3.5-5.1); Sodium 135 mmol/L (136-145)
[2025-03-04 06:45] LABS: ALT (SGPT) 40 U/L (Less than 34); AST (SGOT) 53 U/L (11-34); Albumin 2.3 g/dL (3.1-4.5); Alkaline Phosphatase 234 U/L (40-110); Anion Gap 13 mmol/L (10-20); BUN (Urea Nitrogen) 37 mg/dL (7.0-18.7); Bilirubin, Total 0.1 mg/dL (0.3-1.2); Calc. Creatinine Clearance 18 mL/min (70-130); Calcium 8.1 mg/dL (7.8-10.44); Carbon Dioxide 16 mmol/L (22-29); Chloride 110 mmol/L (98-107); Globulin 3.3 g/dL (2.4-3.5); Glucose 197 mg/dL (70-105); Potassium 3.8 mmol/L (3.5-5.1); Sodium 135 mmol/L (136-145)
[2025-03-04] MEDS: Calcitriol 0.25 MCG CAP PO SCH (08:43)
[2025-03-04] MEDS: Ferrous Sulfate 325 MG TAB PO SCH (09:44)
[2025-03-04] MEDS: EPOETIN ALFA-EPBX (ESRD) 10,000 UNITS/ML VIAL SC SCH (12:27)
[2025-03-04] MEDS: Calcium Carbonate 500 MG ChewTAB PO SCH (12:27)
[2025-03-04] MEDS: Sodium Bicarbonate Tab 325 MG TAB PO SCH (20:49)
[2025-03-05 05:07] LABS: #Basophils 0.03 10x3/uL (0.0-0.2); #Eosinophils 0.25 10x3/uL (0.0-0.7); #Monocytes 0.41 10x3/uL (0.11-0.59); #Neutrophils 3.37 10x3/uL (1.40-6.50); %Basophils 0.5 % (0.0-1.0); %Eosinophils 3.8 % (0.0-10.0); %Lymphocytes 37.4 % (21.0-51.0); %Monocytes 6.3 % (0.0-10.0); %Neutrophils 51.8 % (42.0-75.0); Hematocrit 29.4 % (36.0-47.0); Hemoglobin 9.4 g/dL (12.0-16.0); Mean Corpuscular Hemoglobin 26.9 pg (27.0-31.0); Mean Corpuscular Volume 84.2 fL (78.0-98.0); Platelet Count 154 10x3/uL (130-400); Red Blood Cell (RBC) Count 3.49 mill/uL (4.20-5.40); White Blood Cell (WBC) Count 6.50 10x3/uL (4.8-10.8)
[2025-03-05 05:37] LABS: ALT (SGPT) 31 U/L (Less than 34); AST (SGOT) 41 U/L (11-34); Albumin 3.7 g/dL (3.1-4.5); Alkaline Phosphatase 209 U/L (40-110); Anion Gap 14 mmol/L (10-20); BUN (Urea Nitrogen) 33 mg/dL (7.0-18.7); Bilirubin, Total 0.3 mg/dL (0.3-1.2); Calc. Creatinine Clearance 18 mL/min (70-130); Calcium 8.7 mg/dL (7.8-10.44); Carbon Dioxide 21 mmol/L (22-29); Chloride 109 mmol/L (98-107); Globulin 2.6 g/dL (2.4-3.5); Glucose 275 mg/dL (70-105); Potassium 3.9 mmol/L (3.5-5.1); Sodium 140 mmol/L (136-145)
[2025-03-06 07:22] LABS: #Basophils 0.04 10x3/uL (0.0-0.2); #Eosinophils 0.50 10x3/uL (0.0-0.7); #Monocytes 0.69 10x3/uL (0.11-0.59); #Neutrophils 4.28 10x3/uL (1.40-6.50); %Basophils 0.5 % (0.0-1.0); %Eosinophils 6.2 % (0.0-10.0); %Lymphocytes 32.0 % (21.0-51.0); %Monocytes 8.5 % (0.0-10.0); %Neutrophils 52.6 % (42.0-75.0); Hematocrit 29.6 % (36.0-47.0); Hemoglobin 9.2 g/dL (12.0-16.0); Mean Corpuscular Hemoglobin 26.6 pg (27.0-31.0); Mean Corpuscular Volume 85.5 fL (78.0-98.0); Platelet Count 149 10x3/uL (130-400); Red Blood Cell (RBC) Count 3.46 mill/uL (4.20-5.40); White Blood Cell (WBC) Count 8.13 10x3/uL (4.8-10.8)
[2025-03-06 07:37] LABS: Anion Gap 11 mmol/L (10-20); BUN (Urea Nitrogen) 30 mg/dL (7.0-18.7); Calc. Creatinine Clearance 23 mL/min (70-130); Calcium 8.9 mg/dL (7.8-10.44); Carbon Dioxide 21 mmol/L (22-29); Chloride 111 mmol/L (98-107); Glucose 138 mg/dL (70-105); Potassium 3.5 mmol/L (3.5-5.1); Sodium 139 mmol/L (136-145)
[2025-03-06 20:49] LABS: Glucose POC Confirmation 602 mg/dL (70-105)
[2025-03-06 22:52] LABS: Anion Gap 14 mmol/L (10-20); BUN (Urea Nitrogen) 30 mg/dL (7.0-18.7); Calc. Creatinine Clearance 22 mL/min (70-130); Calcium 9.1 mg/dL (7.8-10.44); Carbon Dioxide 15 mmol/L (22-29); Chloride 106 mmol/L (98-107); Glucose 513 mg/dL (70-105); Potassium 4.3 mmol/L (3.5-5.1); Sodium 131 mmol/L (136-145)
[2025-03-07] MEDS: cloNIDine 0.1 MG TAB PO PRN (01:07)
[2025-03-07 07:13] LABS: #Basophils 0.04 10x3/uL (0.0-0.2); #Eosinophils 0.48 10x3/uL (0.0-0.7); #Monocytes 0.66 10x3/uL (0.11-0.59); #Neutrophils 4.13 10x3/uL (1.40-6.50); %Basophils 0.5 % (0.0-1.0); %Eosinophils 6.0 % (0.0-10.0); %Lymphocytes 33.3 % (21.0-51.0); %Monocytes 8.2 % (0.0-10.0); %Neutrophils 51.6 % (42.0-75.0); Hematocrit 28.4 % (36.0-47.0); Hemoglobin 8.9 g/dL (12.0-16.0); Mean Corpuscular Hemoglobin 26.6 pg (27.0-31.0); Mean Corpuscular Volume 85.0 fL (78.0-98.0); Platelet Count 134 10x3/uL (130-400); Red Blood Cell (RBC) Count 3.34 mill/uL (4.20-5.40); White Blood Cell (WBC) Count 8.01 10x3/uL (4.8-10.8)
[2025-03-07 07:37] LABS: Anion Gap 13 mmol/L (10-20); BUN (Urea Nitrogen) 32 mg/dL (7.0-18.7); Calc. Creatinine Clearance 21 mL/min (70-130); Calcium 8.7 mg/dL (7.8-10.44); Carbon Dioxide 18 mmol/L (22-29); Chloride 110 mmol/L (98-107); Glucose 120 mg/dL (70-105); Potassium 3.8 mmol/L (3.5-5.1); Sodium 137 mmol/L (136-145)
[2025-03-07] MEDS: NIFEdipine XL 30 MG ER.TAB PO SCH (08:38)
[2025-03-07] MEDS: Calcium Carbonate 500 MG ChewTAB PO SCH (17:24)
[2025-03-08 06:07] LABS: #Basophils 0.04 10x3/uL (0.0-0.2); #Eosinophils 0.32 10x3/uL (0.0-0.7); #Monocytes 0.65 10x3/uL (0.11-0.59); #Neutrophils 4.07 10x3/uL (1.40-6.50); %Basophils 0.6 % (0.0-1.0); %Eosinophils 4.5 % (0.0-10.0); %Lymphocytes 28.5 % (21.0-51.0); %Monocytes 9.1 % (0.0-10.0); %Neutrophils 57.0 % (42.0-75.0); Hematocrit 27.4 % (36.0-47.0); Hemoglobin 8.6 g/dL (12.0-16.0); Mean Corpuscular Hemoglobin 26.9 pg (27.0-31.0); Mean Corpuscular Volume 85.6 fL (78.0-98.0); Platelet Count 142 10x3/uL (130-400); Red Blood Cell (RBC) Count 3.20 mill/uL (4.20-5.40); White Blood Cell (WBC) Count 7.13 10x3/uL (4.8-10.8)
[2025-03-08 06:25] LABS: Anion Gap 12 mmol/L (10-20); BUN (Urea Nitrogen) 29 mg/dL (7.0-18.7); Calc. Creatinine Clearance 22 mL/min (70-130); Calcium 8.7 mg/dL (7.8-10.44); Carbon Dioxide 19 mmol/L (22-29); Chloride 111 mmol/L (98-107); Glucose 173 mg/dL (70-105); Potassium 3.9 mmol/L (3.5-5.1); Sodium 138 mmol/L (136-145)
[2025-03-08 07:14] LABS: Hep C IgG Ab NONREACTIVE S/CO (NonReactive); Hep C Index 0.21 S/CO (0-0.79)
[2025-03-08 07:15] LABS: HBSAB Concentration Less than 8.00 mIU/mL
[2025-03-08 08:10] LABS: Hep B Surf Ag Reflx Confirmation S/CO (NonReactive)
[2025-03-08 08:16] LABS: Hep B Core Total Ab REACTIVE (NonReactive); Hep B Core Total Index 10.78 S/CO (0-0.79)
[2025-03-09 09:43] LABS: INR-International Normal Ratio 1.0; Prothrombin Time 13.0 sec (12.0-14.7)
[2025-03-09 09:44] LABS: PTT 32.3 sec (22.9-36.1)
[2025-03-09] MEDS: Tuberculin PPD 0.1 ML SYRINGE (10 TEST VIAL) I-DERMAL SCH (12:14)
[2025-03-09] MEDS ORDERED: Lidocaine 1% w/Epinephrine 1:100K 20 ML VIAL ONE (12:42)
[2025-03-09] MEDS ORDERED: Sodium Bicarbonate 2.5 MEQ/5 ML SDV ONE (12:42)
[2025-03-09] MEDS ORDERED: CEFAZOLIN 1 GM VIAL ONE (13:51)
[2025-03-09] MEDS ORDERED: Vancomycin 1 GM/200 ML (FROZEN) BAG ONE (13:52)
[2025-03-09] MEDS ORDERED: Heparin 5,000 UNITS/ML VIAL ONE (14:09)
[2025-03-09] MEDS: Heparin 10,000 UNITS/ 10 ML VIAL FS SCH (17:51)
[2025-03-09] MEDS: Acetaminophen 500 MG TAB PO PRN (23:28)
[2025-03-10 00:36] LABS: Hep B Surface AG-Rflx Sendout Confirm. indicated (Negative)
[2025-03-10 05:51] LABS: Anion Gap 13 mmol/L (10-20); BUN (Urea Nitrogen) 23 mg/dL (7.0-18.7); Calc. Creatinine Clearance 32 mL/min (70-130); Calcium 8.4 mg/dL (7.8-10.44); Carbon Dioxide 20 mmol/L (22-29); Chloride 107 mmol/L (98-107); Glucose 118 mg/dL (70-105); Potassium 4.0 mmol/L (3.5-5.1); Sodium 136 mmol/L (136-145)
[2025-03-10 06:02] LABS: #Basophils 0.04 10x3/uL (0.0-0.2); #Eosinophils 0.33 10x3/uL (0.0-0.7); #Monocytes 0.66 10x3/uL (0.11-0.59); #Neutrophils 4.05 10x3/uL (1.40-6.50); %Basophils 0.5 % (0.0-1.0); %Eosinophils 4.2 % (0.0-10.0); %Lymphocytes 34.5 % (21.0-51.0); %Monocytes 8.5 % (0.0-10.0); %Neutrophils 52.0 % (42.0-75.0); Hematocrit 27.4 % (36.0-47.0); Hemoglobin 8.4 g/dL (12.0-16.0); Mean Corpuscular Hemoglobin 26.9 pg (27.0-31.0); Mean Corpuscular Volume 87.8 fL (78.0-98.0); Platelet Count 97 10x3/uL (130-400); Red Blood Cell (RBC) Count 3.12 mill/uL (4.20-5.40); White Blood Cell (WBC) Count 7.79 10x3/uL (4.8-10.8)
[2025-03-10 06:32] LABS: Platelet Adequacy Comment Platelets Decreased
[2025-03-10] MEDS: NIFEdipine XL 60 MG ER.TAB PO SCH (08:18)
[2025-03-10] MEDS: Mupirocin 1 GM TUBE NASAL DECOLONIZATION NASAL SCH (20:40)
[2025-03-12 05:39] LABS: #Basophils 0.03 10x3/uL (0.0-0.2); #Eosinophils 0.48 10x3/uL (0.0-0.7); #Monocytes 0.67 10x3/uL (0.11-0.59); #Neutrophils 5.13 10x3/uL (1.40-6.50); %Basophils 0.3 % (0.0-1.0); %Eosinophils 5.5 % (0.0-10.0); %Lymphocytes 27.2 % (21.0-51.0); %Monocytes 7.7 % (0.0-10.0); %Neutrophils 59.1 % (42.0-75.0); Hematocrit 28.1 % (36.0-47.0); Hemoglobin 8.6 g/dL (12.0-16.0); Mean Corpuscular Hemoglobin 27.2 pg (27.0-31.0); Mean Corpuscular Volume 88.9 fL (78.0-98.0); Platelet Count 110 10x3/uL (130-400); Red Blood Cell (RBC) Count 3.16 mill/uL (4.20-5.40); White Blood Cell (WBC) Count 8.69 10x3/uL (4.8-10.8)
[2025-03-12 05:48] LABS: Anion Gap 11 mmol/L (10-20); BUN (Urea Nitrogen) 24 mg/dL (7.0-18.7); Calc. Creatinine Clearance 24 mL/min (70-130); Calcium 8.8 mg/dL (7.8-10.44); Carbon Dioxide 25 mmol/L (22-29); Chloride 103 mmol/L (98-107); Glucose 198 mg/dL (70-105); Potassium 4.3 mmol/L (3.5-5.1); Sodium 135 mmol/L (136-145)
[2025-03-12] MEDS: NIFEdipine XL 60 MG ER.TAB PO SCH (20:24)
[2025-03-13 04:46] LABS: #Basophils 0.03 10x3/uL (0.0-0.2); #Eosinophils 0.44 10x3/uL (0.0-0.7); #Monocytes 0.73 10x3/uL (0.11-0.59); #Neutrophils 4.23 10x3/uL (1.40-6.50); %Basophils 0.4 % (0.0-1.0); %Eosinophils 5.6 % (0.0-10.0); %Lymphocytes 30.8 % (21.0-51.0); %Monocytes 9.3 % (0.0-10.0); %Neutrophils 53.8 % (42.0-75.0); Hematocrit 27.9 % (36.0-47.0); Hemoglobin 8.7 g/dL (12.0-16.0); Mean Corpuscular Hemoglobin 27.9 pg (27.0-31.0); Mean Corpuscular Volume 89.4 fL (78.0-98.0); Platelet Count 110 10x3/uL (130-400); Red Blood Cell (RBC) Count 3.12 mill/uL (4.20-5.40); White Blood Cell (WBC) Count 7.86 10x3/uL (4.8-10.8)
[2025-03-13 04:52] LABS: Anion Gap 12 mmol/L (10-20); BUN (Urea Nitrogen) 19 mg/dL (7.0-18.7); Calc. Creatinine Clearance 27 mL/min (70-130); Calcium 8.5 mg/dL (7.8-10.44); Carbon Dioxide 27 mmol/L (22-29); Chloride 100 mmol/L (98-107); Glucose 108 mg/dL (70-105); Potassium 4.3 mmol/L (3.5-5.1); Sodium 135 mmol/L (136-145)
[2025-03-13 17:26] LABS: Iron 39 ug/dL (50-170); Iron Binding Capacity, Total 268 mcg/dL (265-497)
[2025-03-13 17:46] LABS: Ferritin 238.26 ng/mL (10-291); HIV (1/2) Antibody/Antigen NONREACTIVE (NonReactive); HIV 1/2 INDEX 0.11 S/CO (<1.00)
[2025-03-14 06:23] LABS: #Basophils 0.04 10x3/uL (0.0-0.2); #Eosinophils 0.46 10x3/uL (0.0-0.7); #Monocytes 0.84 10x3/uL (0.11-0.59); #Neutrophils 5.69 10x3/uL (1.40-6.50); %Basophils 0.4 % (0.0-1.0); %Eosinophils 4.9 % (0.0-10.0); %Lymphocytes 25.6 % (21.0-51.0); %Monocytes 8.9 % (0.0-10.0); %Neutrophils 60.0 % (42.0-75.0); Hematocrit 29.8 % (36.0-47.0); Hemoglobin 8.9 g/dL (12.0-16.0); Mean Corpuscular Hemoglobin 27.3 pg (27.0-31.0); Mean Corpuscular Volume 91.4 fL (78.0-98.0); Platelet Count 150 10x3/uL (130-400); Red Blood Cell (RBC) Count 3.26 mill/uL (4.20-5.40); White Blood Cell (WBC) Count 9.48 10x3/uL (4.8-10.8)
[2025-03-14 06:47] LABS: Anion Gap 14 mmol/L (10-20); BUN (Urea Nitrogen) 32 mg/dL (7.0-18.7); Calc. Creatinine Clearance 21 mL/min (70-130); Calcium 8.6 mg/dL (7.8-10.44); Carbon Dioxide 26 mmol/L (22-29); Chloride 101 mmol/L (98-107); Glucose 126 mg/dL (70-105); Potassium 4.6 mmol/L (3.5-5.1); Sodium 136 mmol/L (136-145)
[2025-03-15 14:26] VITALS: BMI 26.5
[2025-03-15] MEDS: Fleet Saline Enema 133 ML BOT PR SCH (18:55)
[2025-03-16 08:05] LABS: ALT (SGPT) 50 U/L (Less than 34); AST (SGOT) 67 U/L (11-34); Albumin 3.1 g/dL (3.1-4.5); Alkaline Phosphatase 272 U/L (40-110); Anion Gap 15 mmol/L (10-20); BUN (Urea Nitrogen) 34 mg/dL (7.0-18.7); Bilirubin, Total 0.3 mg/dL (0.3-1.2); Calc. Creatinine Clearance 22 mL/min (70-130); Calcium 9.2 mg/dL (7.8-10.44); Carbon Dioxide 27 mmol/L (22-29); Chloride 99 mmol/L (98-107); Globulin 3.7 g/dL (2.4-3.5); Glucose 201 mg/dL (70-105); Potassium 4.4 mmol/L (3.5-5.1); Sodium 137 mmol/L (136-145)
[2025-03-16 14:10] LABS: ANA Symphony (Qualitative) POSITIVE (Negative); ANA Symphony (Quantitative) 1.6 Ratio (< 0.7 Negative); CENP IgG Antibody 0.6 EliAU/mL (<7 Negative); EliA Vaculitis New Method **** NEW METHOD ****; Mitochondrial Ab 1.3 U/mL (<4 Negative); RNP70 IgG Antibody 0.9 EliAU/mL (<7 Negative); SSA/Ro IgG Antibody 14.0 EliAU/mL (<7 Negative); SSB/La IgG Antibody Less than 0.4 EliAU/mL (<7 Negative); Scleroderma-70 IgG Antibody 0.8 EliAU/mL (<7 Negative); Smith D IgG Antibody 0.9 EliAU/mL (<7 Negative); U1RNP IgG Antibody 2.0 EliAU/mL (<5 Negative); dsDNA IgG Antibody 26.0 IU/mL (<10 Negative)
[2025-03-17 05:30] LABS: ALT (SGPT) 42 U/L (Less than 34); AST (SGOT) 63 U/L (11-34); Albumin 2.6 g/dL (3.1-4.5); Alkaline Phosphatase 226 U/L (40-110); Anion Gap 14 mmol/L (10-20); BUN (Urea Nitrogen) 20 mg/dL (7.0-18.7); Bilirubin, Total 0.2 mg/dL (0.3-1.2); Calc. Creatinine Clearance 27 mL/min (70-130); Calcium 8.9 mg/dL (7.8-10.44); Carbon Dioxide 27 mmol/L (22-29); Chloride 101 mmol/L (98-107); Globulin 3.2 g/dL (2.4-3.5); Glucose 86 mg/dL (70-105); Potassium 4.2 mmol/L (3.5-5.1); Sodium 138 mmol/L (136-145)
[2025-03-17 08:14] LABS: HBV as IU/mL See Final Results IU/mL (.); Log 10 HBV IU/mL 8.670 (.)
[2025-03-17] MEDS: HYDROcodone/Acetaminophen 5/325 mg Tablet PO PRN ×2 (14:03→22:38)
[2025-03-18 07:19] LABS: ALT (SGPT) 47 U/L (Less than 34); AST (SGOT) 64 U/L (11-34); Albumin 2.8 g/dL (3.1-4.5); Alkaline Phosphatase 248 U/L (40-110); Anion Gap 12 mmol/L (10-20); BUN (Urea Nitrogen) 26 mg/dL (7.0-18.7); Bilirubin, Total 0.2 mg/dL (0.3-1.2); Calc. Creatinine Clearance 22 mL/min (70-130); Calcium 9.0 mg/dL (7.8-10.44); Carbon Dioxide 28 mmol/L (22-29); Chloride 103 mmol/L (98-107); Globulin 3.7 g/dL (2.4-3.5); Glucose 52 mg/dL (70-105); Potassium 4.0 mmol/L (3.5-5.1); Sodium 139 mmol/L (136-145)
[2025-03-19 06:35] LABS: ALT (SGPT) 43 U/L (Less than 34); AST (SGOT) 61 U/L (11-34); Albumin 2.5 g/dL (3.1-4.5); Alkaline Phosphatase 227 U/L (40-110); Anion Gap 12 mmol/L (10-20); BUN (Urea Nitrogen) 27 mg/dL (7.0-18.7); Bilirubin, Total 0.2 mg/dL (0.3-1.2); Calc. Creatinine Clearance 20 mL/min (70-130); Calcium 8.5 mg/dL (7.8-10.44); Carbon Dioxide 26 mmol/L (22-29); Chloride 102 mmol/L (98-107); Globulin 3.2 g/dL (2.4-3.5); Glucose 108 mg/dL (70-105); Potassium 4.4 mmol/L (3.5-5.1); Sodium 136 mmol/L (136-145)
[2025-03-19] MEDS: Senokot S 8.6-50 MG TAB PO PRN (19:50)
[2025-03-19] MEDS: Insulin Glargine 30 UNITS/0.3 ML VIAL SC SCH (21:59)
[2025-03-20 07:32] LABS: ALT (SGPT) 52 U/L (Less than 34); AST (SGOT) 85 U/L (11-34); Albumin 2.9 g/dL (3.1-4.5); Alkaline Phosphatase 275 U/L (40-110); Anion Gap 16 mmol/L (10-20); BUN (Urea Nitrogen) 20 mg/dL (7.0-18.7); Bilirubin, Total 0.2 mg/dL (0.3-1.2); Calc. Creatinine Clearance 28 mL/min (70-130); Calcium 8.8 mg/dL (7.8-10.44); Carbon Dioxide 23 mmol/L (22-29); Chloride 102 mmol/L (98-107); Globulin 3.6 g/dL (2.4-3.5); Glucose 73 mg/dL (70-105); Potassium 4.7 mmol/L (3.5-5.1); Sodium 136 mmol/L (136-145)
[2025-03-20] MEDS: Insulin Glargine 30 UNITS/0.3 ML VIAL SC SCH (20:06)
[2025-03-21 10:19] LABS: ALT (SGPT) 54 U/L (Less than 34); AST (SGOT) 82 U/L (11-34); Albumin 2.9 g/dL (3.1-4.5); Alkaline Phosphatase 308 U/L (40-110); Anion Gap 14 mmol/L (10-20); BUN (Urea Nitrogen) 24 mg/dL (7.0-18.7); Bilirubin, Total 0.2 mg/dL (0.3-1.2); Calc. Creatinine Clearance 23 mL/min (70-130); Calcium 9.3 mg/dL (7.8-10.44); Carbon Dioxide 23 mmol/L (22-29); Chloride 103 mmol/L (98-107); Globulin 3.6 g/dL (2.4-3.5); Glucose 155 mg/dL (70-105); Potassium 5.4 mmol/L (3.5-5.1); Sodium 135 mmol/L (136-145)
[2025-03-21] MEDS: Lactulose 20 GM (30 mL) UDCUP PO SCH (12:03)
[2025-03-21] MEDS: LOKELMA 10 GM PACKET PO SCH (12:05)
[2025-03-22 08:04] LABS: ALT (SGPT) 49 U/L (Less than 34); AST (SGOT) 72 U/L (11-34); Albumin 2.9 g/dL (3.1-4.5); Alkaline Phosphatase 316 U/L (40-110); Anion Gap 11 mmol/L (10-20); BUN (Urea Nitrogen) 28 mg/dL (7.0-18.7); Bilirubin, Total 0.2 mg/dL (0.3-1.2); Calc. Creatinine Clearance 21 mL/min (70-130); Calcium 9.1 mg/dL (7.8-10.44); Carbon Dioxide 26 mmol/L (22-29); Chloride 103 mmol/L (98-107); Globulin 3.8 g/dL (2.4-3.5); Glucose 66 mg/dL (70-105); Potassium 5.0 mmol/L (3.5-5.1); Sodium 135 mmol/L (136-145)
[2025-03-23 05:52] LABS: #Basophils 0.04 10x3/uL (0.0-0.2); #Eosinophils 0.24 10x3/uL (0.0-0.7); #Monocytes 0.60 10x3/uL (0.11-0.59); #Neutrophils 3.39 10x3/uL (1.40-6.50); %Basophils 0.7 % (0.0-1.0); %Eosinophils 3.9 % (0.0-10.0); %Lymphocytes 29.7 % (21.0-51.0); %Monocytes 9.9 % (0.0-10.0); %Neutrophils 55.6 % (42.0-75.0); Hematocrit 30.5 % (36.0-47.0); Hemoglobin 9.5 g/dL (12.0-16.0); Mean Corpuscular Hemoglobin 28.2 pg (27.0-31.0); Mean Corpuscular Volume 90.5 fL (78.0-98.0); Platelet Count 183 10x3/uL (130-400); Red Blood Cell (RBC) Count 3.37 mill/uL (4.20-5.40); White Blood Cell (WBC) Count 6.09 10x3/uL (4.8-10.8)
[2025-03-23 06:10] LABS: Anion Gap 13 mmol/L (10-20); BUN (Urea Nitrogen) 15 mg/dL (7.0-18.7); Calc. Creatinine Clearance 32 mL/min (70-130); Calcium 8.8 mg/dL (7.8-10.44); Carbon Dioxide 25 mmol/L (22-29); Chloride 100 mmol/L (98-107); Glucose 236 mg/dL (70-105); Potassium 4.7 mmol/L (3.5-5.1); Sodium 133 mmol/L (136-145)
[2025-03-23] MEDS: HYDROcodone/Acetaminophen 7.5/325 mg Tablet PO PRN (15:03)
[2025-03-24 12:13] LABS: Hematocrit 30.8 % (36.0-47.0); Hemoglobin 9.2 g/dL (12.0-16.0); Mean Corpuscular Hemoglobin 27.6 pg (27.0-31.0); Mean Corpuscular Volume 92.5 fL (78.0-98.0); Platelet Count 209 10x3/uL (130-400); Red Blood Cell (RBC) Count 3.33 mill/uL (4.20-5.40); White Blood Cell (WBC) Count 6.89 10x3/uL (4.8-10.8)
[2025-03-24 12:33] LABS: ALT (SGPT) 45 U/L (Less than 34); AST (SGOT) 67 U/L (11-34); Albumin 2.7 g/dL (3.1-4.5); Alkaline Phosphatase 312 U/L (40-110); Anion Gap 12 mmol/L (10-20); BUN (Urea Nitrogen) 26 mg/dL (7.0-18.7); Bilirubin, Total 0.2 mg/dL (0.3-1.2); Calc. Creatinine Clearance 24 mL/min (70-130); Calcium 9.0 mg/dL (7.8-10.44); Carbon Dioxide 26 mmol/L (22-29); Chloride 102 mmol/L (98-107); Globulin 3.5 g/dL (2.4-3.5); Glucose 152 mg/dL (70-105); Potassium 4.8 mmol/L (3.5-5.1); Sodium 135 mmol/L (136-145)
[2025-03-26 05:07] LABS: #Basophils 0.05 10x3/uL (0.0-0.2); #Eosinophils 0.42 10x3/uL (0.0-0.7); #Monocytes 0.79 10x3/uL (0.11-0.59); #Neutrophils 3.42 10x3/uL (1.40-6.50); %Basophils 0.7 % (0.0-1.0); %Eosinophils 6.0 % (0.0-10.0); %Lymphocytes 33.0 % (21.0-51.0); %Monocytes 11.3 % (0.0-10.0); %Neutrophils 48.9 % (42.0-75.0); Hematocrit 30.3 % (36.0-47.0); Hemoglobin 9.4 g/dL (12.0-16.0); Mean Corpuscular Hemoglobin 28.3 pg (27.0-31.0); Mean Corpuscular Volume 91.3 fL (78.0-98.0); Platelet Count 206 10x3/uL (130-400); Red Blood Cell (RBC) Count 3.32 mill/uL (4.20-5.40); White Blood Cell (WBC) Count 7.00 10x3/uL (4.8-10.8)
[2025-03-26 05:22] LABS: Anion Gap 9 mmol/L (10-20); BUN (Urea Nitrogen) 23 mg/dL (7.0-18.7); Calc. Creatinine Clearance 25 mL/min (70-130); Calcium 9.1 mg/dL (7.8-10.44); Carbon Dioxide 26 mmol/L (22-29); Chloride 103 mmol/L (98-107); Glucose 111 mg/dL (70-105); Potassium 4.2 mmol/L (3.5-5.1); Sodium 134 mmol/L (136-145)
[2025-03-27 05:47] LABS: #Basophils 0.04 10x3/uL (0.0-0.2); #Eosinophils 0.35 10x3/uL (0.0-0.7); #Monocytes 0.85 10x3/uL (0.11-0.59); #Neutrophils 3.50 10x3/uL (1.40-6.50); %Basophils 0.6 % (0.0-1.0); %Eosinophils 5.1 % (0.0-10.0); %Lymphocytes 30.6 % (21.0-51.0); %Monocytes 12.4 % (0.0-10.0); %Neutrophils 51.2 % (42.0-75.0); Hematocrit 31.7 % (36.0-47.0); Hemoglobin 9.8 g/dL (12.0-16.0); Mean Corpuscular Hemoglobin 28.2 pg (27.0-31.0); Mean Corpuscular Volume 91.1 fL (78.0-98.0); Platelet Count 206 10x3/uL (130-400); Red Blood Cell (RBC) Count 3.48 mill/uL (4.20-5.40); White Blood Cell (WBC) Count 6.84 10x3/uL (4.8-10.8)
[2025-03-27 05:57] LABS: Anion Gap 11 mmol/L (10-20); BUN (Urea Nitrogen) 15 mg/dL (7.0-18.7); Calc. Creatinine Clearance 31 mL/min (70-130); Calcium 9.0 mg/dL (7.8-10.44); Carbon Dioxide 27 mmol/L (22-29); Chloride 99 mmol/L (98-107); Glucose 136 mg/dL (70-105); Potassium 4.2 mmol/L (3.5-5.1); Sodium 133 mmol/L (136-145)
[2025-03-29 09:19] LABS: #Basophils 0.05 10x3/uL (0.0-0.2); #Eosinophils 0.49 10x3/uL (0.0-0.7); #Monocytes 0.78 10x3/uL (0.11-0.59); #Neutrophils 3.33 10x3/uL (1.40-6.50); %Basophils 0.7 % (0.0-1.0); %Eosinophils 6.5 % (0.0-10.0); %Lymphocytes 38.1 % (21.0-51.0); %Monocytes 10.3 % (0.0-10.0); %Neutrophils 44.1 % (42.0-75.0); Hematocrit 34.1 % (36.0-47.0); Hemoglobin 10.5 g/dL (12.0-16.0); Mean Corpuscular Hemoglobin 28.6 pg (27.0-31.0); Mean Corpuscular Volume 92.9 fL (78.0-98.0); Platelet Count 231 10x3/uL (130-400); Red Blood Cell (RBC) Count 3.67 mill/uL (4.20-5.40); White Blood Cell (WBC) Count 7.54 10x3/uL (4.8-10.8)
[2025-03-29 09:34] LABS: Anion Gap 13 mmol/L (10-20); BUN (Urea Nitrogen) 30 mg/dL (7.0-18.7); Calc. Creatinine Clearance 20 mL/min (70-130); Calcium 8.8 mg/dL (7.8-10.44); Carbon Dioxide 22 mmol/L (22-29); Chloride 104 mmol/L (98-107); Glucose 116 mg/dL (70-105); Potassium 4.7 mmol/L (3.5-5.1); Sodium 134 mmol/L (136-145)
[2025-03-29] MEDS: Calcium Carbonate 500 MG ChewTAB PO SCH (21:12)
[2025-04-01 13:15] LABS: HBV as IU/mL See Final Results IU/mL (.); Log 10 HBV IU/mL 8.695 (.)
[2025-04-02 07:46] LABS: #Basophils 0.06 10x3/uL (0.0-0.2); #Eosinophils 0.67 10x3/uL (0.0-0.7); #Monocytes 0.66 10x3/uL (0.11-0.59); #Neutrophils 3.32 10x3/uL (1.40-6.50); %Basophils 0.8 % (0.0-1.0); %Eosinophils 8.6 % (0.0-10.0); %Lymphocytes 39.2 % (21.0-51.0); %Monocytes 8.5 % (0.0-10.0); %Neutrophils 42.6 % (42.0-75.0); Hematocrit 34.8 % (36.0-47.0); Hemoglobin 11.0 g/dL (12.0-16.0); Mean Corpuscular Hemoglobin 28.3 pg (27.0-31.0); Mean Corpuscular Volume 89.5 fL (78.0-98.0); Platelet Count 205 10x3/uL (130-400); Red Blood Cell (RBC) Count 3.89 mill/uL (4.20-5.40); White Blood Cell (WBC) Count 7.78 10x3/uL (4.8-10.8)
[2025-04-02 07:51] LABS: Anion Gap 13 mmol/L (10-20); BUN (Urea Nitrogen) 28 mg/dL (7.0-18.7); Calc. Creatinine Clearance 24 mL/min (70-130); Calcium 9.5 mg/dL (7.8-10.44); Carbon Dioxide 23 mmol/L (22-29); Chloride 101 mmol/L (98-107); Glucose 82 mg/dL (70-105); Potassium 5.0 mmol/L (3.5-5.1); Sodium 132 mmol/L (136-145)
[2025-04-02 17:54] VITALS: BP 113/73; TEMP 98.6
== END 2025-04-02 18:47 | disposition home or self-care (01) | DRG 674 ==
LOC: ERS 14:31 → T4-A 19:48
PROVIDERS: ADMIT Internal Medicine; ATTEND Hospitalist
PROC: B5181ZA Fluoroscopy of Superior Vena Cava using Low Osmolar Contrast, Guidance (ICD-10-PCS; principal; 2025-03-09)
PROC: 0JH63XZ Insertion of Tunneled Vascular Access Device into Chest Subcutaneous Tissue and Fascia, Percutaneous Approach (ICD-10-PCS; principal; 2025-03-09)
PROC: 02HV33Z Insertion of Infusion Device into Superior Vena Cava, Percutaneous Approach (ICD-10-PCS; principal; 2025-03-09)
PROC: B548ZZA Ultrasonography of Superior Vena Cava, Guidance (ICD-10-PCS; principal; 2025-03-09)
DX: N17.9 Acute kidney failure, unspecified (principal); B16.9 Acute hepatitis B without delta-agent and without hepatic coma; I12.0 Hypertensive chronic kidney disease with stage 5 chronic kidney disease or end stage renal disease; N30.00 Acute cystitis without hematuria; N18.6 End stage renal disease; F17.210 Nicotine dependence, cigarettes, uncomplicated; E11.22 Type 2 diabetes mellitus with diabetic chronic kidney disease; E11.65 Type 2 diabetes mellitus with hyperglycemia; E83.39 Other disorders of phosphorus metabolism; F15.10 Other stimulant abuse, uncomplicated; Z79.4 Long term (current) use of insulin; Z99.2 Dependence on renal dialysis; Z91.199 Patient's noncompliance with other medical treatment and regimen due to unspecified reason
CPT/HCPCS: 36415; 36416; 36558; 71045; 74176; 76705; 80048; 80053; 80306; 80307; 81001; 82010; 82103; 82105; 82390; 82728; 82805; 83036; 83516; 83540; 83550; 83690; 83970; 84100; 84703; 85025; 85027; 85610; 85730; 86015; 86038; 86225; 86235; 86580; 86704; 86706; 86707; 86708; 86803; 87077; 87086; 87186; 87340; 87350; 87389; 87517; 90935; 93005; 96361; 96374; 96375; C1751; C1769; G0257; J0690; J1644; J1815; J2270; J2272; J2405; J2550; J3373; J7030; P9047; Q5105

== ENCOUNTER 2025-04-13 12:23 | Emergency (ER) | payer OTHER ==
[2025-04-13 14:00] LABS: ALT (SGPT) 51 U/L (Less than 34); AST (SGOT) 64 U/L (11-34); Albumin 3.4 g/dL (3.1-4.5); Alkaline Phosphatase 229 U/L (40-110); Anion Gap 16 mmol/L (10-20); BUN (Urea Nitrogen) 47 mg/dL (7.0-18.7); Bilirubin, Total 0.4 mg/dL (0.3-1.2); Calc. Creatinine Clearance 0 mL/min (70-130); Calcium 9.3 mg/dL (7.8-10.44); Carbon Dioxide 18 mmol/L (22-29); Chloride 107 mmol/L (98-107); Globulin 4.2 g/dL (2.4-3.5); Glucose 154 mg/dL (70-105); Potassium 3.7 mmol/L (3.5-5.1); Sodium 137 mmol/L (136-145)
[2025-04-13 14:28] LABS: #Basophils 0.08 10x3/uL (0.0-0.2); #Eosinophils 0.78 10x3/uL (0.0-0.7); #Monocytes 0.68 10x3/uL (0.11-0.59); #Neutrophils 3.87 10x3/uL (1.40-6.50); %Basophils 1.0 % (0.0-1.0); %Eosinophils 9.4 % (0.0-10.0); %Lymphocytes 34.3 % (21.0-51.0); %Monocytes 8.2 % (0.0-10.0); %Neutrophils 46.9 % (42.0-75.0); Hematocrit 31.7 % (36.0-47.0); Hemoglobin 10.0 g/dL (12.0-16.0); Mean Corpuscular Hemoglobin 27.9 pg (27.0-31.0); Mean Corpuscular Volume 88.3 fL (78.0-98.0); Platelet Count 342 10x3/uL (130-400); Red Blood Cell (RBC) Count 3.59 mill/uL (4.20-5.40); White Blood Cell (WBC) Count 8.27 10x3/uL (4.8-10.8)
[2025-04-13] MEDS ORDERED: Acetaminophen 325 MG TAB ONE (17:12)
== END 2025-04-13 19:00 | disposition home or self-care (01) ==
LOC: ERS 12:23
DX: S82.422A Displaced transverse fracture of shaft of left fibula, initial encounter for closed fracture (principal); D64.9 Anemia, unspecified; R79.89 Other specified abnormal findings of blood chemistry; E11.9 Type 2 diabetes mellitus without complications; I10 Essential (primary) hypertension; F17.210 Nicotine dependence, cigarettes, uncomplicated; W18.30XA Fall on same level, unspecified, initial encounter
CPT/HCPCS: 36416; 80053; 85025; 93005; 99284